=== PATIENT | male | born 1935 | race Caucasian/White ===

== ENCOUNTER 2019-12-12 17:01 | Inpatient (IN) | payer MEDICARE ==
--- NOTE | 2019-12-12 18:11 | ERPHSYRPT ---
- History of Present Illness Source: patient Exam Limitations: no limitations Patient Subjective Stated Complaint: Pt states "I have a stiff neck and a cough for the past 5 days, I had a headache, but that went away. this stiffness and cough will not." Triage Nursing Assessment: Pt presented alert and oriented X 3, skin pwd Pt ambulates with a slow gait using a cane, able to speak in clear full sentences. Pt has intermittant cough. Timing/Duration: day(s) (5) Activities at Onset: none Severity of Dyspnea-Max: mild Severity of Dyspnea-Current: mild Possible Cause: no prior episodes Modifying Factors: Improves With: coughing Associated Symptoms: cough Hx Tetanus, Diphtheria Vaccination/Date Given: No Hx Influenza Vaccination/Date Given: No Hx Pneumococcal Vaccination/Date Given: No Immunizations Up to Date: Yes <MARISSA SPRINGER - Last Filed: 12/12/19 19:09> <ANA PAULA TURNER - Last Filed: 12/12/19 21:19> - History of Present Illness Time Seen by Provider: 12/12/19 17:55 Physician History: Is an 84-year-old white gentleman who presents to the emergency department with a 5-day history of cough, muscle aches and pains including shoulders and neck and weakness as well as a significant headache. Patient has not had a fever. He does not have significant shortness of breath. He has no chest pain. Patient does take Entresto and Eliquis because of "thick blood" and he is on metoprolol. Patient does take several homeopathic preparations for his health. Patient has not had any nausea vomiting or diarrhea. He has no abdominal pain. States the cough is been persistent but improved. His headache is nearly resolved. He does have some mild aches and pains still in his neck and shoulders but they have improved. (MARISSA SPRINGER) Allergies/Adverse Reactions: No Known Drug Allergies Allergy (Unverified 12/12/19 17:33) Home Medications: Apixaban [Eliquis] 2.5 mg PO DAILY 12/12/19 [History] Metoprolol Tartrate 25 mg [Lopressor 25MG Tab] 25 mg PO DAILY 12/12/19 [ History] Sacubitril/Valsartan [Entresto 24 mg-26 mg Tablet] 1 tab PO DAILY 12/12/19 [ History] Travel Risk - International Travel Have you traveled outside of the country in past 3 weeks: No Have you or anyone close to you been diagnosed with or: No Do your reside in a community with a known COVID-19 case?: Yes If Yes where:: [place] - Coronavirus Screening Has patient experienced Coronavirus symptoms: Yes Symptoms experienced: respiratory symptoms (i.e.Cought,shortness of breath), severe headache Date of fever onset:: 12/07/19 Date of respiratory symptoms onset:: 12/07/19 <MARISSA SPRINGER - Last Filed: 12/12/19 19:09> - Review of Systems Constitutional: No Symptoms Eyes: No Symptoms Ears, Nose, & Throat: No Symptoms Respiratory: Cough (Mild), Dyspnea (Mild) Cardiac: No Symptoms Abdominal/Gastrointestinal: No Symptoms Genitourinary Symptoms: No Symptoms Musculoskeletal: Arthralgias, Neck Pain, Myalgias Skin: No Symptoms Neurological: No Symptoms Psychological: No Symptoms Endocrine: No Symptoms Hematologic/Lymphatic: No Symptoms Immunological/Allergic: No Symptoms All Other Systems: Reviewed and Negative <MRAISSA SPRINGER - Last Filed: 12/12/19 19:09> - Past Medical History Pertinent Past Medical History: Yes Neurological History: No Pertinent History ENT History: No Pertinent History Cardiac History: No Pertinent History Respiratory History: No Pertinent History Endocrine Medical History: No Pertinent History Musculoskeletal History: Arthritis GI Medical History: No Pertinent History History: No Pertinent History Psycho-Social History: No Pertinent History Male Reproductive Disorders: No Pertinent History - Past Surgical History Past Surgical History: Yes Neuro Surgical History: No Pertinent History Cardiac: No Pertinent History Respiratory: No Pertinent History Gastrointestinal: No Pertinent History Genitourinary: No Pertinent History Musculoskeletal: No Pertinent History Male Surgical History: No Pertinent History Other Surgical History: scrotal - Social History Smoking Status: Former smoker Exposure to second hand smoke: Yes Drug Use: none Patient Lives Alone: Yes <MARISSA SPRINGER - Last Filed: 12/12/19 19:09> - Physical Exam General Appearance: mild distress, alert, anxiety Eye Exam: PERRL/EOMI, eyes nml inspection Ears, Nose, Throat Exam: hearing grossly normal, normal ENT inspection, normal pharynx Neck Exam: normal inspection, supple, full range of motion, other (Mild achiness on bilateral paraspinous muscles down to the trapezius muscles. 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, normal mood/affect, nml cerebellar function, nml station & gait Skin Exam: normal color, warm, dry, other (Patient has chronic venous stasis disease skin changes of his bilateral lower extremities) Lymphatic Exam: No adenopathy SpO2 Interpretation: normal SpO2: 99 O2 Delivery: Room Air <MARISSA SPRINGER - Last Filed: 12/12/19 19:09> - Nursing Vital Signs Nursing Vital Signs: Initial Vital Signs Temperature 99.5 F 12/12/19 17:25 Pulse Rate 92 H 12/12/19 17:25 Respiratory Rate 22 12/12/19 17:25 Blood Pressure 94/89 12/12/19 17:25 O2 Sat by Pulse Oximetry 99 12/12/19 17:25 Pain Scale Pain Intensity 0 - Course Nursing assessment & vital signs reviewed: Yes EKG Interpreted by Me: RATE (86), A-fib (Rate controlled), NORMAL AXIS, Right Bundle Branch Block, Other (QRS significantly prolonged. No obvious acute ischemic changes.) <MARISSA SPRINGER - Last Filed: 12/12/19 19:09> Ordered Tests: Active Orders 24 hr Category Date Time Status Admit as Inpatient ROUTINE Care 12/12/19 20:48 Active CO2 Monitoring CONTINUOUS Care 12/12/19 20:50 Active Nurses Assistant STAT Care 12/12/19 18:20 Active EKG-ER Only STAT Care 12/12/19 18:19 Active [facility] COVID Approval STAT Care 12/12/19 20:53 Active IV Care Q6H Care 12/12/19 20:49 Active IV Insertion STAT Care 12/12/19 18:20 Active Isolation, Initiate & Maintain Q6H Care 12/12/19 20:48 Active Pulse Oximetry (ED) STAT Care 12/12/19 18:19 Active Vital Signs Q4H Care 12/12/19 20:48 Active Regular Diet Diet 12/12/19 Breakfast Active CHEST 1 VIEW (PORTABLE) Stat Exams 12/12/19 18:19 Taken ECHO W/2D AND DOPPLER [US] Routine Exams 12/12/19 Ordered BLOOD CULTURE Stat Lab 12/12/19 19:10 Received CBC Routine Lab 12/12/19 20:48 Ordered CBC W DIFF Stat Lab 12/12/19 18:00 Completed CMP AM.LAB Lab 12/13/19 04:00 Ordered CMP Stat Lab 12/12/19 18:00 Completed Ferritin Stat Lab 12/12/19 18:00 Completed LDH-LACTATE DEHYDROGENASE Stat Lab 12/12/19 18:00 Completed Lactic Acid Stat Lab 12/12/19 18:00 Completed [place] Screen Stat Lab 12/12/19 18:00 Completed NT PRO BNP AM.LAB Lab 12/13/19 04:00 Ordered NT PRO BNP Stat Lab 12/12/19 18:00 Completed PROTIME WITH INR Stat Lab 12/12/19 18:00 Completed TROPONIN Q3H Lab 12/12/19 18:00 Completed TROPONIN Q3H Lab 12/12/19 21:30 Ordered TROPONIN Q3H Lab 12/13/19 00:30 Ordered TROPONIN Q3H Lab 12/13/19 03:30 Ordered TROPONIN Q3H Lab 12/13/19 06:30 Ordered EKG REPEAT IN AM RT 12/12/19 20:48 Active Respiratory Therapy Consult ROUTINE RT 12/12/19 20:48 Active Medication Summary Generic Name Dose Route Start Last Admin Trade Name Freq PRN Reason Stop Dose Admin Azithromycin 500 mg in 250 mls @ 250 mls/hr 12/12/19 20:43 Zithromax 500 Mg/ 250 Ml Nacl Premix IV 12/12/19 21:42 STAT ONE Discontinued Medications Generic Name Dose Route Start Last Admin Trade Name Freq PRN Reason Stop Dose Admin Ceftriaxone Sodium/Dextrose 1 g in 50 mls @ 100 mls/hr 12/12/19 20:43 Rocephin 1 Gm-D5w 50 Ml Bag IV 12/12/19 21:12 STAT STA Lab/Rad Data: Laboratory Result Diagrams 12/12/19 18:00 12/12/19 18:00 Laboratory Results 12/12/19 12/12/19 12/12/19 Range/Units Unknown 18:00 18:00 WBC (4.0-10.5) K/mm3 RBC (4.1-5.6) M/mm3 Hgb (12.5-18.0) gm/dl Hct (42-50) % MCV (78-100) fl MCH (26-32) pg MCHC (32-36) g/dl RDW (11.5-14.0) % Plt Count (150-450) K/mm3 MPV (7.5-11.0) fl Gran % (36.0-66.0) % Eos # (Auto) (0-0.5) Absolute Lymphs (auto) (1.0-4.6) Absolute Monos (auto) (0.0-1.3) Lymphocytes % (24.0-44.0) % Monocytes % (0.0-12.0) % Eosinophils % (0.00-5.0) % Basophils % (0.0-0.4) % Absolute Granulocytes (1.4-6.9) Basophils # (0-0.4) PT (8.83-12.87) SECONDS INR (0.8-3.0) Sodium (137-145) mmol/L Potassium (3.5-5.1) mmol/L Chloride (98-107) mmol/L Carbon Dioxide (22-30) mmol/L Anion Gap (5-15) MEQ/L BUN (9-20) mg/dL Creatinine (0.66-1.25) mg/dL Estimated GFR ML/MIN Glucose (74-106) mg/dL Lactic Acid (0.4-2.0) Calcium (8.4-10.2) mg/dL Ferritin 224 (17.9-464) ng/mL Total Bilirubin (0.2-1.3) mg/dL AST (17-59) U/L ALT (0-50) U/L Alkaline Phosphatase (38-126) U/L Lactate Dehydrogenase (120-246) U/L Troponin I (0.000-0.034) ng/mL NT-Pro-B Natriuret Pep (0-1800) pg/mL Serum Total Protein (6.3-8.2) g/dL Albumin (3.5-5.0) g/dL Monoscreen NEGATIVE (Negative) Influenza Type A Ag (NEGATIVE) Influenza Type B Ag (NEGATIVE) RSV (PCR) (Negative) Group A Strep Antibody NOT DETECTED (NEGATIVE) 12/12/19 12/12/19 12/12/19 Range/Units 18:00 18:00 18:00 WBC (4.0-10.5) K/mm3 RBC (4.1-5.6) M/mm3 Hgb (12.5-18.0) gm/dl Hct (42-50) % MCV (78-100) fl MCH (26-32) pg MCHC (32-36) g/dl RDW (11.5-14.0) % Plt Count (150-450) K/mm3 MPV (7.5-11.0) fl Gran % (36.0-66.0) % Eos # (Auto) (0-0.5) Absolute Lymphs (auto) (1.0-4.6) Absolute Monos (auto) (0.0-1.3) Lymphocytes % (24.0-44.0) % Monocytes % (0.0-12.0) % Eosinophils % (0.00-5.0) % Basophils % (0.0-0.4) % Absolute Granulocytes (1.4-6.9) Basophils # (0-0.4) PT (8.83-12.87) SECONDS INR (0.8-3.0) Sodium (137-145) mmol/L Potassium (3.5-5.1) mmol/L Chloride (98-107) mmol/L Carbon Dioxide (22-30) mmol/L Anion Gap (5-15) MEQ/L BUN (9-20) mg/dL Creatinine (0.66-1.25) mg/dL Estimated GFR ML/MIN Glucose (74-106) mg/dL Lactic Acid (0.4-2.0) Calcium (8.4-10.2) mg/dL Ferritin (17.9-464) ng/mL Total Bilirubin (0.2-1.3) mg/dL AST (17-59) U/L ALT (0-50) U/L Alkaline Phosphatase (38-126) U/L Lactate Dehydrogenase 125 (120-246) U/L Troponin I < 0.012 (0.000-0.034) ng/mL NT-Pro-B Natriuret Pep (0-1800) pg/mL Serum Total Protein (6.3-8.2) g/dL Albumin (3.5-5.0) g/dL Monoscreen (Negative) Influenza Type A Ag NEGATIVE (NEGATIVE) Influenza Type B Ag NEGATIVE (NEGATIVE) RSV (PCR) NEGATIVE (Negative) Group A Strep Antibody (NEGATIVE) 12/12/19 12/12/19 12/12/19 Range/Units 18:00 18:00 18:00 WBC 8.3 (4.0-10.5) K/mm3 RBC 3.86 L (4.1-5.6) M/mm3 Hgb 13.2 (12.5-18.0) gm/dl Hct 38.6 L (42-50) % MCV 100.0 (78-100) fl MCH 34.2 H (26-32) pg MCHC 34.2 (32-36) g/dl RDW 13.1 (11.5-14.0) % Plt Count 261 (150-450) K/mm3 MPV 10.2 (7.5-11.0) fl Gran % 48.0 (36.0-66.0) % Eos # (Auto) 0.36 (0-0.5) Absolute Lymphs (auto) 3.00 (1.0-4.6) Absolute Monos (auto) 0.92 (0.0-1.3) Lymphocytes % 36.1 (24.0-44.0) % Monocytes % 11.1 (0.0-12.0) % Eosinophils % 4.3 (0.00-5.0) % Basophils % 0.5 (0.0-0.4) % Absolute Granulocytes 3.98 (1.4-6.9) Basophils # 0.04 (0-0.4) PT 16.6 H (8.83-12.87) SECONDS INR 1.46 (0.8-3.0) Sodium 142 (137-145) mmol/L Potassium 4.1 (3.5-5.1) mmol/L Chloride 104 (98-107) mmol/L Carbon Dioxide 28 (22-30) mmol/L Anion Gap 13.2 (5-15) MEQ/L BUN 24 H (9-20) mg/dL Creatinine 1.14 (0.66-1.25) mg/dL Estimated GFR > 60.0 ML/MIN Glucose 106 (74-106) mg/dL Lactic Acid (0.4-2.0) Calcium 9.3 (8.4-10.2) mg/dL Ferritin (17.9-464) ng/mL Total Bilirubin 0.70 (0.2-1.3) mg/dL AST 40 (17-59) U/L ALT 14 (0-50) U/L Alkaline Phosphatase 94 (38-126) U/L Lactate Dehydrogenase (120-246) U/L Troponin I (0.000-0.034) ng/mL NT-Pro-B Natriuret Pep 728 (0-1800) pg/mL Serum Total Protein 7.9 (6.3-8.2) g/dL Albumin 3.8 (3.5-5.0) g/dL Monoscreen (Negative) Influenza Type A Ag (NEGATIVE) Influenza Type B Ag (NEGATIVE) RSV (PCR) (Negative) Group A Strep Antibody (NEGATIVE) 12/12/19 Range/Units 18:00 WBC (4.0-10.5) K/mm3 RBC (4.1-5.6) M/mm3 Hgb (12.5-18.0) gm/dl Hct (42-50) % MCV (78-100) fl MCH (26-32) pg MCHC (32-36) g/dl RDW (11.5-14.0) % Plt Count (150-450) K/mm3 MPV (7.5-11.0) fl Gran % (36.0-66.0) % Eos # (Auto) (0-0.5) Absolute Lymphs (auto) (1.0-4.6) Absolute Monos (auto) (0.0-1.3) Lymphocytes % (24.0-44.0) % Monocytes % (0.0-12.0) % Eosinophils % (0.00-5.0) % Basophils % (0.0-0.4) % Absolute Granulocytes (1.4-6.9) Basophils # (0-0.4) PT (8.83-12.87) SECONDS INR (0.8-3.0) Sodium (137-145) mmol/L Potassium (3.5-5.1) mmol/L Chloride (98-107) mmol/L Carbon Dioxide (22-30) mmol/L Anion Gap (5-15) MEQ/L BUN (9-20) mg/dL Creatinine (0.66-1.25) mg/dL Estimated GFR ML/MIN Glucose (74-106) mg/dL Lactic Acid 1.4 (0.4-2.0) Calcium (8.4-10.2) mg/dL Ferritin (17.9-464) ng/mL Total Bilirubin (0.2-1.3) mg/dL AST (17-59) U/L ALT (0-50) U/L Alkaline Phosphatase (38-126) U/L Lactate Dehydrogenase (120-246) U/L Troponin I (0.000-0.034) ng/mL NT-Pro-B Natriuret Pep (0-1800) pg/mL Serum Total Protein (6.3-8.2) g/dL Albumin (3.5-5.0) g/dL Monoscreen (Negative) Influenza Type A Ag (NEGATIVE) Influenza Type B Ag (NEGATIVE) RSV (PCR) (Negative) Group A Strep Antibody (NEGATIVE) <MARISSA SPRINGER - Last Filed: 12/12/19 19:09> - Progress Blood Culture(s) Obtained: Yes Antibiotics given: Yes Discussed with : Anuj Will see patient in: hospital (full admit) Counseled pt/family regarding: lab results, diagnosis, rad results <ANA PAULA TURNER - Last Filed: 12/12/19 21:19> - Progress Progress Note: 12/12/19 19:09 I reviewed the patient's history, condition and work-up pending with Dr. Ana Paula Turner. He is assuming care of this patient. (MARISSA SPRINGER) 12/12/19 21:19 Patient has a right lower lobe pneumonia versus effusion. He would benefit from an inpatient echocardiogram, continued cardiac monitoring, repeat EKGs and troponin. Patient may also have pneumonia, therefore we will treat with ceftriaxone and azithromycin. Initial antibiotics written for here in the emergency department. Patient will need close follow-up with inpatient physician. I did discuss over the phone with Dr. Lindsey and Dr. aMrtinez. Eventually, Dr. Martinez did accept the patient to the COVID-19 unit here at [facility]. All COVID precautions will be taken per protocols. (ANA PAULA TURNER) <MARISSA SPRINGER - Last Filed: 12/12/19 19:09> - Departure Departure Disposition: In-patient Admission Critical Care Time: No <ANA PAULA TURNER - Last Filed: 12/12/19 21:19> - Departure Clinical Impression: COVID-19, CHF exacerbation, PNA (pneumonia) Condition: Stable Referrals: RADHA GUTIÉRREZ [Primary Care Provider] - Instructions: Heart Failure
[2019-12-12 18:35] LABS: Absolute Neutrophil Ct (ANC) 3.98 (1.4-6.9); BASOPHIL % 0.5 % (0.0-0.4); Basophil (Absolute #) 0.04 (0-0.4); Eosinophil % 4.3 % (0.00-5.0); Eosinophil (Absolute #) 0.36 (0-0.5); Hematocrit 38.6 % (42-50); Hemoglobin 13.2 gm/dl (12.5-18.0); Lymphocytes % 36.1 % (24.0-44.0); Mean Corpuscular Hemoglobin 34.2 pg (26-32); Mean Corpuscular Hgb Concent. 34.2 g/dl (32-36); Mean Platelet Volume 10.2 fl (7.5-11.0); Monocyte (Absolute #) 0.92 (0.0-1.3); Monocytes % 11.1 % (0.0-12.0); Platelet Count 261 K/mm3 (150-450); Red Blood Count 3.86 M/mm3 (4.1-5.6); Red Cell Distribution Width 13.1 % (11.5-14.0); White Blood Count 8.3 K/mm3 (4.0-10.5)
[2019-12-12 18:49] LABS: INR 1.46 (0.8-3.0); PROTIME 16.6 SECONDS (8.83-12.87)
[2019-12-12 18:59] LABS: INFLUENZA A NEGATIVE (NEGATIVE); INFLUENZA B NEGATIVE (NEGATIVE); RESPIRATORY SYNCTIAL VIRUS NEGATIVE (Negative)
[2019-12-12 19:07] LABS: ALBUMIN 3.8 g/dL (3.5-5.0); ALKALINE PHOSPHATASE 94 U/L (38-126); ANION GAP 13.2 MEQ/L (5-15); BLOOD UREA NITROGEN 24 mg/dL (9-20); CHLORIDE 104 mmol/L (98-107); Calcium 9.3 mg/dL (8.4-10.2); Carbon Dioxide 28 mmol/L (22-30); Creatinine 1 1.14 mg/dL (0.66-1.25); Glucose 106 mg/dL (74-106); NT PRO BNP 728 pg/mL (0-1800); Potassium 4.1 mmol/L (3.5-5.1); SGOT/AST 40 U/L (17-59); SGPT/ALT 14 U/L (0-50); SODIUM 142 mmol/L (137-145); Total Protein 7.9 g/dL (6.3-8.2)
[2019-12-12] MEDS ORDERED: Zithromax 500 MG/ 250 ML NaCl Premix 500 MG/250 ML IVPB IV ONE ×2 (20:43→22:54)
[2019-12-12] MEDS ORDERED: ROCEPHIN 1 Gm-D5w 50 ml Bag** 1 G/50 ML IVPB IV STA (20:43)
[2019-12-12] MEDS ORDERED: ROCEPHIN 1 Gm-D5w 50 ml Bag** 1 G/50 ML IVPB IV ONE (22:54)
[2019-12-13 04:04] LABS: Hematocrit 36.8 % (42-50); Hemoglobin 12.2 gm/dl (12.5-18.0); Mean Cell Volume 101.7 fl (78-100); Mean Corpuscular Hemoglobin 33.7 pg (26-32); Mean Corpuscular Hgb Concent. 33.2 g/dl (32-36); Mean Platelet Volume 10.2 fl (7.5-11.0); Platelet Count 246 K/mm3 (150-450); Red Blood Count 3.62 M/mm3 (4.1-5.6); Red Cell Distribution Width 13.3 % (11.5-14.0); White Blood Count 7.8 K/mm3 (4.0-10.5)
[2019-12-13 04:10] LABS: ALBUMIN 3.3 g/dL (3.5-5.0); ALKALINE PHOSPHATASE 82 U/L (38-126); BLOOD UREA NITROGEN 22 mg/dL (9-20); CHLORIDE 106 mmol/L (98-107); Carbon Dioxide 29 mmol/L (22-30); Creatinine 1 1.03 mg/dL (0.66-1.25); Glucose 92 mg/dL (74-106); NT PRO BNP 788 pg/mL (0-1800); Potassium 4.1 mmol/L (3.5-5.1); SGOT/AST 21 U/L (17-59); SGPT/ALT 12 U/L (0-50); SODIUM 139 mmol/L (137-145); Total Protein 7.2 g/dL (6.3-8.2)
--- NOTE | 2019-12-13 08:51 | XRAY ---
Indication: Cough. Comparison: None Portable chest demonstrates cardiomegaly obscuring left lung base. Subtle right base infiltrate versus atelectasis. Descending aorta tortuous. Bony thorax intact with osteopenia and mild degenerative changes. Impression: 1. Right base infiltrate/atelectasis. Correlate clinically. 2. Cardiomegaly.
[2019-12-13 10:50] LABS: Appearance CLEAR (CLEAR); Bilirubin NEGATIVE (NEGATIVE); Blood NEGATIVE Ery/ul (0-5); Glucose NEGATIVE (NEGATIVE); Ketones NEGATIVE (NEGATIVE); Leukocyte Esterase NEGATIVE (NEGATIVE); Mucus SLIGHT /HPF (NEGATIVE); Nitrite NEGATIVE (NEGATIVE); Protein,Urine Dip NEGATIVE (Negative); Specific Gravity 1.017 (1.005-1.025); Urobilinogen NEGATIVE mg/dL (0-1)
[2019-12-13] MEDS: SYNTHROID 25 MCG PO SCH (11:38)
[2019-12-13] MEDS: ELIQUIS 2.5 MG TABLET PO SCH ×2 (11:39→20:53)
[2019-12-13] MEDS: ENTRESTO 49 MG-51 MG TABLET PO SCH ×2 (11:39→20:52)
[2019-12-13] MEDS: Lopressor 25MG Tab PO SCH ×2 (11:39→20:53)
--- NOTE | 2019-12-13 11:41 | PCM.HP ---
History of Present Illness - Chief Complaint Chief Complaint: Pneumonia, COVID 19, CHF History of Present Illness: Mr.LOCKARD COOPER is a 84 year old male who presented to the ER yesterday with a complaint of cough, headache and stiff neck x 5 days. he had some chills and felt weak as well, cough has been nonproductive. he is actually feeling some better today, stiffness in his neck is improved. he lives with 2 grandsons and is independent. Dr Janet Mathias is his PCP, he contacted her office yesterday and was apparently directed to the ER for evaluation due to his complaints. he also has a history of a fib and chf. - Review of Systems Constitutional: No Fever, No Chills Respiratory: Cough Cardiac: No Chest Pain, No Edema, No Syncope Skin: No Rash All Other Systems: Reviewed and Negative Medications & Allergies Home Medications: Home Medication List Apixaban [Eliquis] 2.5 mg PO BID 12/12/19 [History Confirmed 12/13/19] Metoprolol Tartrate 25 mg [Lopressor 25MG Tab] 25 mg PO BID 12/12/19 [ History Confirmed 12/13/19] Sacubitril/Valsartan [Entresto 24 mg-26 mg Tablet] 1 tab PO BID 12/12/19 [ History Confirmed 12/13/19] Levothyroxine Sodium 25 Mcg [Synthroid 25 Mcg] 25 mcg PO DAILY 12/13/19 [ History Confirmed 12/13/19] Allergies/Adverse Reactions: Allergies Allergy/AdvReac Type Severity Reaction Status Date / Time No Known Drug Allergies Allergy Unverified 12/12/19 17:33 - Past Medical History Past Medical History: Yes Neurological History: No Pertinent History ENT History: No Pertinent History Cardiac History: No Pertinent History Respiratory History: No Pertinent History Endocrine Medical History: No Pertinent History Musculoskelatal History: Arthritis GI Medical History: No Pertinent History History: No Pertinent History Pyscho-Social History: No Pertinent History Male Reproductive Disorders: No Pertinent History - Past Surgical History Past Surgical History: Yes Neuro Surgical History: No Pertinent History Cardiac History: No Pertinent History Respiratory Surgery: No Pertinent History GI Surgical History: No Pertinent History Genitourinary Surgical Hx: No Pertinent History Musculskeletal Surgical Hx: No Pertinent History Male Surgical History: No Pertinent History Other Surgical History: scrotal - Social History Smoking Status: Former smoker Exposure to second hand smoke: Yes Alcohol: None Drug Use: none - Physical Exam Vital Signs: Vital Signs - 24 hr Temp Pulse Resp BP Pulse Ox 12/13/19 11:00 10 L 12/13/19 10:00 83 21 95 12/13/19 09:00 16 12/13/19 08:00 99.0 F 65 19 135/64 12/13/19 07:00 17 12/13/19 05:58 69 18 93 L 12/13/19 05:15 70 18 95 12/13/19 05:00 18 12/13/19 04:00 97.7 F 71 18 111/65 95 12/13/19 03:40 17 12/13/19 02:00 68 17 95 12/13/19 01:00 18 12/13/19 00:18 86 18 94 L 12/13/19 00:00 84 18 12/12/19 23:50 98.4 F 86 18 118/70 94 L 12/12/19 23:00 73 17 128/84 94 L 12/12/19 22:30 74 18 115/63 94 L 12/12/19 22:00 70 18 129/83 95 12/12/19 21:04 77 18 131/56 97 12/12/19 20:23 76 18 127/67 97 12/12/19 19:27 74 15 133/86 98 12/12/19 19:10 99 12/12/19 18:33 98 12/12/19 18:17 84 17 144/93 97 12/12/19 17:25 99.5 F 92 H 22 94/89 98 General Appearance: no apparent distress Neurologic Exam: alert, oriented x 3, cooperative Respiratory Exam: rhonchi (no distress, slight rhonci in bases but overall good air exchange. no increased work of breathing) Cardiovascular Exam: irregular Extremity Exam: normal inspection, normal range of motion, pelvis stable Skin Exam: normal color, warm, dry, No rash Results - Labs Lab/Micro Results: Lab Results-Last 24 Hours 12/12/19 12/12/19 12/12/19 Range/Units 18:00 18:00 18:00 WBC 8.3 (4.0-10.5) K/mm3 RBC 3.86 L (4.1-5.6) M/mm3 Hgb 13.2 (12.5-18.0) gm/dl Hct 38.6 L (42-50) % MCV 100.0 (78-100) fl MCH 34.2 H (26-32) pg MCHC 34.2 (32-36) g/dl RDW 13.1 (11.5-14.0) % Plt Count 261 (150-450) K/mm3 MPV 10.2 (7.5-11.0) fl Gran % 48.0 (36.0-66.0) % Eos # (Auto) 0.36 (0-0.5) Absolute Lymphs (auto) 3.00 (1.0-4.6) Absolute Monos (auto) 0.92 (0.0-1.3) Lymphocytes % 36.1 (24.0-44.0) % Monocytes % 11.1 (0.0-12.0) % Eosinophils % 4.3 (0.00-5.0) % Basophils % 0.5 (0.0-0.4) % Absolute Granulocytes 3.98 (1.4-6.9) Basophils # 0.04 (0-0.4) PT (8.83-12.87) SECONDS INR (0.8-3.0) Sodium 142 (137-145) mmol/L Potassium 4.1 (3.5-5.1) mmol/L Chloride 104 (98-107) mmol/L Carbon Dioxide 28 (22-30) mmol/L Anion Gap 13.2 (5-15) MEQ/L BUN 24 H (9-20) mg/dL Creatinine 1.14 (0.66-1.25) mg/dL Estimated GFR > 60.0 ML/MIN Glucose 106 (74-106) mg/dL Lactic Acid 1.4 (0.4-2.0) Calcium 9.3 (8.4-10.2) mg/dL Ferritin (17.9-464) ng/mL Total Bilirubin 0.70 (0.2-1.3) mg/dL AST 40 (17-59) U/L ALT 14 (0-50) U/L Alkaline Phosphatase 94 (38-126) U/L Lactate Dehydrogenase (120-246) U/L Troponin I (0.000-0.034) ng/mL NT-Pro-B Natriuret Pep 728 (0-1800) pg/mL Serum Total Protein 7.9 (6.3-8.2) g/dL Albumin 3.8 (3.5-5.0) g/dL Monoscreen (Negative) Influenza Type A Ag (NEGATIVE) Influenza Type B Ag (NEGATIVE) RSV (PCR) (Negative) Group A Strep Antibody (NEGATIVE) 12/12/19 12/12/19 12/12/19 Range/Units 18:00 18:00 18:00 WBC (4.0-10.5) K/mm3 RBC (4.1-5.6) M/mm3 Hgb (12.5-18.0) gm/dl Hct (42-50) % MCV (78-100) fl MCH (26-32) pg MCHC (32-36) g/dl RDW (11.5-14.0) % Plt Count (150-450) K/mm3 MPV (7.5-11.0) fl Gran % (36.0-66.0) % Eos # (Auto) (0-0.5) Absolute Lymphs (auto) (1.0-4.6) Absolute Monos (auto) (0.0-1.3) Lymphocytes % (24.0-44.0) % Monocytes % (0.0-12.0) % Eosinophils % (0.00-5.0) % Basophils % (0.0-0.4) % Absolute Granulocytes (1.4-6.9) Basophils # (0-0.4) PT 16.6 H (8.83-12.87) SECONDS INR 1.46 (0.8-3.0) Sodium (137-145) mmol/L Potassium (3.5-5.1) mmol/L Chloride (98-107) mmol/L Carbon Dioxide (22-30) mmol/L Anion Gap (5-15) MEQ/L BUN (9-20) mg/dL Creatinine (0.66-1.25) mg/dL Estimated GFR ML/MIN Glucose (74-106) mg/dL Lactic Acid (0.4-2.0) Calcium (8.4-10.2) mg/dL Ferritin (17.9-464) ng/mL Total Bilirubin (0.2-1.3) mg/dL AST (17-59) U/L ALT (0-50) U/L Alkaline Phosphatase (38-126) U/L Lactate Dehydrogenase (120-246) U/L Troponin I < 0.012 (0.000-0.034) ng/mL NT-Pro-B Natriuret Pep (0-1800) pg/mL Serum Total Protein (6.3-8.2) g/dL Albumin (3.5-5.0) g/dL Monoscreen (Negative) Influenza Type A Ag NEGATIVE (NEGATIVE) Influenza Type B Ag NEGATIVE (NEGATIVE) RSV (PCR) NEGATIVE (Negative) Group A Strep Antibody (NEGATIVE) 12/12/19 12/12/19 12/12/19 Range/Units 18:00 18:00 18:00 WBC (4.0-10.5) K/mm3 RBC (4.1-5.6) M/mm3 Hgb (12.5-18.0) gm/dl Hct (42-50) % MCV (78-100) fl MCH (26-32) pg MCHC (32-36) g/dl RDW (11.5-14.0) % Plt Count (150-450) K/mm3 MPV (7.5-11.0) fl Gran % (36.0-66.0) % Eos # (Auto) (0-0.5) Absolute Lymphs (auto) (1.0-4.6) Absolute Monos (auto) (0.0-1.3) Lymphocytes % (24.0-44.0) % Monocytes % (0.0-12.0) % Eosinophils % (0.00-5.0) % Basophils % (0.0-0.4) % Absolute Granulocytes (1.4-6.9) Basophils # (0-0.4) PT (8.83-12.87) SECONDS INR (0.8-3.0) Sodium (137-145) mmol/L Potassium (3.5-5.1) mmol/L Chloride (98-107) mmol/L Carbon Dioxide (22-30) mmol/L Anion Gap (5-15) MEQ/L BUN (9-20) mg/dL Creatinine (0.66-1.25) mg/dL Estimated GFR ML/MIN Glucose (74-106) mg/dL Lactic Acid (0.4-2.0) Calcium (8.4-10.2) mg/dL Ferritin 224 (17.9-464) ng/mL Total Bilirubin (0.2-1.3) mg/dL AST (17-59) U/L ALT (0-50) U/L Alkaline Phosphatase (38-126) U/L Lactate Dehydrogenase 125 (120-246) U/L Troponin I (0.000-0.034) ng/mL NT-Pro-B Natriuret Pep (0-1800) pg/mL Serum Total Protein (6.3-8.2) g/dL Albumin (3.5-5.0) g/dL Monoscreen NEGATIVE (Negative) Influenza Type A Ag (NEGATIVE) Influenza Type B Ag (NEGATIVE) RSV (PCR) (Negative) Group A Strep Antibody (NEGATIVE) 12/12/19 12/12/19 12/13/19 Range/Units 21:35 Unknown 00:45 WBC (4.0-10.5) K/mm3 RBC (4.1-5.6) M/mm3 Hgb (12.5-18.0) gm/dl Hct (42-50) % MCV (78-100) fl MCH (26-32) pg MCHC (32-36) g/dl RDW (11.5-14.0) % Plt Count (150-450) K/mm3 MPV (7.5-11.0) fl Gran % (36.0-66.0) % Eos # (Auto) (0-0.5) Absolute Lymphs (auto) (1.0-4.6) Absolute Monos (auto) (0.0-1.3) Lymphocytes % (24.0-44.0) % Monocytes % (0.0-12.0) % Eosinophils % (0.00-5.0) % Basophils % (0.0-0.4) % Absolute Granulocytes (1.4-6.9) Basophils # (0-0.4) PT (8.83-12.87) SECONDS INR (0.8-3.0) Sodium (137-145) mmol/L Potassium (3.5-5.1) mmol/L Chloride (98-107) mmol/L Carbon Dioxide (22-30) mmol/L Anion Gap (5-15) MEQ/L BUN (9-20) mg/dL Creatinine (0.66-1.25) mg/dL Estimated GFR ML/MIN Glucose (74-106) mg/dL Lactic Acid (0.4-2.0) Calcium (8.4-10.2) mg/dL Ferritin (17.9-464) ng/mL Total Bilirubin (0.2-1.3) mg/dL AST (17-59) U/L ALT (0-50) U/L Alkaline Phosphatase (38-126) U/L Lactate Dehydrogenase (120-246) U/L Troponin I < 0.012 < 0.012 (0.000-0.034) ng/mL NT-Pro-B Natriuret Pep (0-1800) pg/mL Serum Total Protein (6.3-8.2) g/dL Albumin (3.5-5.0) g/dL Monoscreen (Negative) Influenza Type A Ag (NEGATIVE) Influenza Type B Ag (NEGATIVE) RSV (PCR) (Negative) Group A Strep Antibody NOT DETECTED (NEGATIVE) 12/13/19 12/13/19 12/13/19 Range/Units 03:40 03:40 03:40 WBC 7.8 (4.0-10.5) K/mm3 RBC 3.62 L (4.1-5.6) M/mm3 Hgb 12.2 L (12.5-18.0) gm/dl Hct 36.8 L (42-50) % MCV 101.7 H (78-100) fl MCH 33.7 H (26-32) pg MCHC 33.2 (32-36) g/dl RDW 13.3 (11.5-14.0) % Plt Count 246 (150-450) K/mm3 MPV 10.2 (7.5-11.0) fl Gran % (36.0-66.0) % Eos # (Auto) (0-0.5) Absolute Lymphs (auto) (1.0-4.6) Absolute Monos (auto) (0.0-1.3) Lymphocytes % (24.0-44.0) % Monocytes % (0.0-12.0) % Eosinophils % (0.00-5.0) % Basophils % (0.0-0.4) % Absolute Granulocytes (1.4-6.9) Basophils # (0-0.4) PT (8.83-12.87) SECONDS INR (0.8-3.0) Sodium 139 (137-145) mmol/L Potassium 4.1 (3.5-5.1) mmol/L Chloride 106 (98-107) mmol/L Carbon Dioxide 29 (22-30) mmol/L Anion Gap 9.0 (5-15) MEQ/L BUN 22 H (9-20) mg/dL Creatinine 1.03 (0.66-1.25) mg/dL Estimated GFR > 60.0 ML/MIN Glucose 92 (74-106) mg/dL Lactic Acid (0.4-2.0) Calcium 9.0 (8.4-10.2) mg/dL Ferritin (17.9-464) ng/mL Total Bilirubin 0.90 (0.2-1.3) mg/dL AST 21 (17-59) U/L ALT 12 (0-50) U/L Alkaline Phosphatase 82 (38-126) U/L Lactate Dehydrogenase (120-246) U/L Troponin I < 0.012 (0.000-0.034) ng/mL NT-Pro-B Natriuret Pep 788 (0-1800) pg/mL Serum Total Protein 7.2 (6.3-8.2) g/dL Albumin 3.3 L (3.5-5.0) g/dL Monoscreen (Negative) Influenza Type A Ag (NEGATIVE) Influenza Type B Ag (NEGATIVE) RSV (PCR) (Negative) Group A Strep Antibody (NEGATIVE) 12/13/19 Range/Units 07:20 WBC (4.0-10.5) K/mm3 RBC (4.1-5.6) M/mm3 Hgb (12.5-18.0) gm/dl Hct (42-50) % MCV (78-100) fl MCH (26-32) pg MCHC (32-36) g/dl RDW (11.5-14.0) % Plt Count (150-450) K/mm3 MPV (7.5-11.0) fl Gran % (36.0-66.0) % Eos # (Auto) (0-0.5) Absolute Lymphs (auto) (1.0-4.6) Absolute Monos (auto) (0.0-1.3) Lymphocytes % (24.0-44.0) % Monocytes % (0.0-12.0) % Eosinophils % (0.00-5.0) % Basophils % (0.0-0.4) % Absolute Granulocytes (1.4-6.9) Basophils # (0-0.4) PT (8.83-12.87) SECONDS INR (0.8-3.0) Sodium (137-145) mmol/L Potassium (3.5-5.1) mmol/L Chloride (98-107) mmol/L Carbon Dioxide (22-30) mmol/L Anion Gap (5-15) MEQ/L BUN (9-20) mg/dL Creatinine (0.66-1.25) mg/dL Estimated GFR ML/MIN Glucose (74-106) mg/dL Lactic Acid (0.4-2.0) Calcium (8.4-10.2) mg/dL Ferritin (17.9-464) ng/mL Total Bilirubin (0.2-1.3) mg/dL AST (17-59) U/L ALT (0-50) U/L Alkaline Phosphatase (38-126) U/L Lactate Dehydrogenase (120-246) U/L Troponin I < 0.012 (0.000-0.034) ng/mL NT-Pro-B Natriuret Pep (0-1800) pg/mL Serum Total Protein (6.3-8.2) g/dL Albumin (3.5-5.0) g/dL Monoscreen (Negative) Influenza Type A Ag (NEGATIVE) Influenza Type B Ag (NEGATIVE) RSV (PCR) (Negative) Group A Strep Antibody (NEGATIVE) - Radiology Impressions Radiology Exams & Impressions: Radiology Procedures Category Date Time Status CHEST 1 VIEW (PORTABLE) Stat Exams 12/12/19 18:19 Completed - Other Procedures and Tests Respiratory Therapy 12/13/19 00:21 Respiratory Therapy Assessment DAILY Assessment/Plan (1) Community acquired pneumonia Current Visit: Yes Status: Acute Assessment & Plan: on rocephin/zithromax, covid swab pending. nontoxic appearing and tolerating po , no fluids Code(s): J18.9 - PNEUMONIA, UNSPECIFIED ORGANISM (2) Atrial fibrillation Current Visit: Yes Status: Acute Assessment & Plan: continue eliquis Code(s): I48.91 - UNSPECIFIED ATRIAL FIBRILLATION (3) CHF (congestive heart failure) Current Visit: Yes Status: Acute Assessment & Plan: currently appears euvolemic, continue entresto. no need for diuresis currently but will monitor volume status Code(s): I50.9 - HEART FAILURE, UNSPECIFIED
[2019-12-13] MEDS: TYLENOL 325 MG PO PRN (16:30)
[2019-12-13] MEDS: ROCEPHIN 1 Gm-D5w 50 ml Bag** 1 G/50 ML IVPB IV SCH (20:52)
[2019-12-13] MEDS: Zithromax 500 MG/ 250 ML NaCl Premix 500 MG/250 ML IVPB IV SCH (21:33)
[2019-12-13] MEDS ORDERED: NON-FORMULARY ITEM (Sacubitril/Valsartan [Entresto 24 Mg-26 Mg Tablet] 1 TAB) PO SCH (22:00)
[2019-12-14 05:14] LABS: Absolute Neutrophil Ct (ANC) 3.88 (1.4-6.9); BASOPHIL % 0.2 % (0.0-0.4); Basophil (Absolute #) 0.02 (0-0.4); Eosinophil % 1.9 % (0.00-5.0); Eosinophil (Absolute #) 0.16 (0-0.5); Hematocrit 36.7 % (42-50); Hemoglobin 12.1 gm/dl (12.5-18.0); Lymphocyte (Absolute #) 2.97 (1.0-4.6); Mean Cell Volume 101.7 fl (78-100); Mean Corpuscular Hemoglobin 33.5 pg (26-32); Mean Platelet Volume 10.1 fl (7.5-11.0); Monocyte (Absolute #) 1.23 (0.0-1.3); Monocytes % 14.9 % (0.0-12.0); Platelet Count 239 K/mm3 (150-450); Red Blood Count 3.61 M/mm3 (4.1-5.6); Red Cell Distribution Width 13.3 % (11.5-14.0); White Blood Count 8.3 K/mm3 (4.0-10.5)
[2019-12-14 05:50] LABS: BLOOD UREA NITROGEN 25 mg/dL (9-20); CHLORIDE 106 mmol/L (98-107); Calcium 8.8 mg/dL (8.4-10.2); Carbon Dioxide 27 mmol/L (22-30); Creatinine 1 1.05 mg/dL (0.66-1.25); Glucose 101 mg/dL (74-106); NT PRO BNP 1210 pg/mL (0-1800); SODIUM 139 mmol/L (137-145)
[2019-12-14] MEDS: ENTRESTO 49 MG-51 MG TABLET PO SCH ×2 (09:19→21:47)
[2019-12-14] MEDS: ELIQUIS 2.5 MG TABLET PO SCH ×2 (09:19→21:47)
[2019-12-14] MEDS: SYNTHROID 25 MCG PO SCH (09:19)
[2019-12-14] MEDS: Lopressor 25MG Tab PO SCH ×2 (09:20→21:48)
--- NOTE | 2019-12-14 11:05 | PCM.NOTE ---
Date and Time: 12/14/19 1101 Subjective Assessment: patient is very weak and requires maximum assistance by staff to get to restroom etc. he has chronic weakness in the legs worse on the left and seems to be worse than usual in the last few days/weeks. no trouble with speech, no visual changes and no weakness in arms or hands. 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, No motor deficits, No sensory deficit Respiratory Exam: normal breath sounds, lungs clear, No respiratory distress Cardiovascular Exam: regular rate/rhythm, normal heart sounds Gastrointestinal/Abdomen Exam: soft, No tenderness, No mass OBJECTIVE DATA Vital Signs: Vital Signs - 24 hr Temp Pulse Resp BP Pulse Ox 12/14/19 10:00 98.3 F 76 18 94 L 12/14/19 08:41 16 12/14/19 08:00 16 12/14/19 07:13 98.3 F 81 16 130/61 96 12/14/19 07:00 16 12/14/19 06:50 93 L 12/14/19 06:00 79 24 93 L 12/14/19 05:19 85 21 92 L 12/14/19 05:00 17 12/14/19 04:00 99.2 F 88 24 105/62 97 12/14/19 03:00 22 12/14/19 02:00 84 22 92 L 12/14/19 01:00 23 12/14/19 00:52 71 23 97 12/14/19 00:00 98.8 F 65 21 108/55 95 12/13/19 23:00 18 12/13/19 22:00 73 17 94 L 12/13/19 21:00 79 23 96 12/13/19 20:00 98.4 F 103 H 19 110/63 94 L 12/13/19 19:40 101 H 18 94 L 12/13/19 19:00 19 12/13/19 18:00 91 H 24 95 12/13/19 17:00 13 12/13/19 16:34 98.7 F 12/13/19 16:00 98.6 F 80 16 131/63 12/13/19 15:00 21 12/13/19 14:00 75 15 95 12/13/19 13:59 22 12/13/19 13:00 22 12/13/19 12:55 98.3 F 12/13/19 12:00 11 L 12/13/19 11:38 100.7 F 95 H 17 144/89 96 Pain Assessment - Last Documented Pain Intensity 0 Pain Scale Used 0-10 Pain Scale Intake and Output: Intake & Output 12/11/19 12/12/19 12/13/19 12/14/19 11:59 11:59 11:59 11:59 Intake Total 200 830 Output Total 500 400 Balance -300 430 Weight 102.6 kg Lab Results: Lab Results-Last 24 Hours 12/13/19 12/14/19 12/14/19 Range/Units 05:00 04:50 04:50 WBC 8.3 (4.0-10.5) K/mm3 RBC 3.61 L (4.1-5.6) M/mm3 Hgb 12.1 L (12.5-18.0) gm/dl Hct 36.7 L (42-50) % MCV 101.7 H (78-100) fl MCH 33.5 H (26-32) pg MCHC 33.0 (32-36) g/dl RDW 13.3 (11.5-14.0) % Plt Count 239 (150-450) K/mm3 MPV 10.1 (7.5-11.0) fl Gran % 47.0 (36.0-66.0) % Eos # (Auto) 0.16 (0-0.5) Absolute Lymphs (auto) 2.97 (1.0-4.6) Absolute Monos (auto) 1.23 (0.0-1.3) Lymphocytes % 36.0 (24.0-44.0) % Monocytes % 14.9 H (0.0-12.0) % Eosinophils % 1.9 (0.00-5.0) % Basophils % 0.2 (0.0-0.4) % Absolute Granulocytes 3.88 (1.4-6.9) Basophils # 0.02 (0-0.4) Sodium 139 (137-145) mmol/L Potassium 4.0 (3.5-5.1) mmol/L Chloride 106 (98-107) mmol/L Carbon Dioxide 27 (22-30) mmol/L Anion Gap 10.0 (5-15) MEQ/L BUN 25 H (9-20) mg/dL Creatinine 1.05 (0.66-1.25) mg/dL Estimated GFR > 60.0 ML/MIN Glucose 101 (74-106) mg/dL Calcium 8.8 (8.4-10.2) mg/dL NT-Pro-B Natriuret Pep 1210 (0-1800) pg/mL Urine Color YELLOW (YELLOW) Urine Appearance CLEAR (CLEAR) Urine pH 5.0 (5-6) Ur Specific [place] 1.017 (1.005-1.025) Urine Protein NEGATIVE (Negative) Urine Ketones NEGATIVE (NEGATIVE) Urine Blood NEGATIVE (0-5) Jared/ul Urine Nitrite NEGATIVE (NEGATIVE) Urine Bilirubin NEGATIVE (NEGATIVE) Urine Urobilinogen NEGATIVE (0-1) mg/dL Ur Leukocyte Esterase NEGATIVE (NEGATIVE) Urine WBC (Auto) NONE (0-5) /HPF Urine RBC (Auto) 3-5 (0-2) /HPF U Epithel Cells (Auto) NONE (FEW) /HPF Urine Bacteria (Auto) NONE (NEGATIVE) /HPF Urine Mucus (Auto) SLIGHT (NEGATIVE) /HPF Urine Culture Reflexed NO (NO) Urine Glucose NEGATIVE (NEGATIVE) mg/dL Radiology Exams: Radiology Procedures Category Date Time Status CHEST 1 VIEW (PORTABLE) Stat Exams 12/12/19 18:19 Completed Multi-Disciplinary Progress Notes: Multi-Disciplinary Progress Notes 12/14/19 10:58 Case Management Note by Florence Tripp S/Luis PATIENT HE CONTINUES TO DENY ANY NEEDS REGARDING DC AT THIS TIME. 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 HE PLANS TO GET COVID RESULTS BACK THEN IF NEGATIVE HAVE PT ASSESS HIM AND GO FROM THERE. PATIENT RELUCTANT TO GO TO REHAB BUT SEEMS AGREEABLE IF HE NEEDS TO. HE IS AWARE WE ARE WAITING FOR COVID RESULTS AND WILL GO FROM THERE. DAUGHTER MICHAELA ALSO UPDATED ON PLAN AND VERIFIED UNDERSTANDING. Initialized on 12/14/19 10:52 - END OF NOTE Assessment/Plan (1) Community acquired pneumonia Current Visit: Yes Status: Acute Assessment & Plan: no fever, wbc normal. awaiting covid swab. on rocephin/zithromax Code(s): J18.9 - PNEUMONIA, UNSPECIFIED ORGANISM (2) Atrial fibrillation Current Visit: Yes Status: Acute Code(s): I48.91 - UNSPECIFIED ATRIAL FIBRILLATION (3) CHF (congestive heart failure) Current Visit: Yes Status: Acute Assessment & Plan: add po lasix and monitor volume status Code(s): I50.9 - HEART FAILURE, UNSPECIFIED (4) Generalized weakness Current Visit: Yes Status: Acute Code(s): R53.1 - WEAKNESS
[2019-12-14] MEDS: Klor Con 10 MEQ PO SCH (11:51)
[2019-12-14] MEDS: LASIX 20 MG PO SCH (11:51)
[2019-12-14] MEDS: ROCEPHIN 1 Gm-D5w 50 ml Bag** 1 G/50 ML IVPB IV SCH (21:11)
[2019-12-14] MEDS: Zithromax 500 MG/ 250 ML NaCl Premix 500 MG/250 ML IVPB IV SCH (22:16)
[2019-12-15 05:28] LABS: ANION GAP 9.9 MEQ/L (5-15); BLOOD UREA NITROGEN 24 mg/dL (9-20); CHLORIDE 104 mmol/L (98-107); Calcium 8.8 mg/dL (8.4-10.2); Carbon Dioxide 28 mmol/L (22-30); Creatinine 1 0.95 mg/dL (0.66-1.25); Glucose 100 mg/dL (74-106); NT PRO BNP 1050 pg/mL (0-1800); Potassium 4.4 mmol/L (3.5-5.1); SODIUM 137 mmol/L (137-145)
[2019-12-15 05:30] LABS: Absolute Neutrophil Ct (ANC) 3.78 (1.4-6.9); BASOPHIL % 0.2 % (0.0-0.4); Basophil (Absolute #) 0.02 (0-0.4); Eosinophil % 3.1 % (0.00-5.0); Eosinophil (Absolute #) 0.25 (0-0.5); Hematocrit 36.6 % (42-50); Hemoglobin 12.2 gm/dl (12.5-18.0); Lymphocyte (Absolute #) 3.06 (1.0-4.6); Lymphocytes % 38.2 % (24.0-44.0); Mean Cell Volume 101.9 fl (78-100); Mean Corpuscular Hgb Concent. 33.3 g/dl (32-36); Mean Platelet Volume 9.8 fl (7.5-11.0); Monocyte (Absolute #) 0.91 (0.0-1.3); Monocytes % 11.3 % (0.0-12.0); Neutrophil % 47.2 % (36.0-66.0); Platelet Count 237 K/mm3 (150-450); Red Blood Count 3.59 M/mm3 (4.1-5.6); Red Cell Distribution Width 13.2 % (11.5-14.0)
[2019-12-15] MEDS: ENTRESTO 49 MG-51 MG TABLET PO SCH ×2 (08:23→21:35)
[2019-12-15] MEDS: TYLENOL 325 MG PO PRN ×2 (08:24→13:03)
[2019-12-15] MEDS: Klor Con 10 MEQ PO SCH (08:25)
[2019-12-15] MEDS: Lopressor 25MG Tab PO SCH ×2 (08:25→21:36)
[2019-12-15] MEDS: LASIX 20 MG PO SCH (08:25)
[2019-12-15] MEDS: SYNTHROID 25 MCG PO SCH (08:25)
[2019-12-15] MEDS: ELIQUIS 2.5 MG TABLET PO SCH ×2 (08:26→21:35)
--- NOTE | 2019-12-15 10:27 | PCM.NOTE ---
Date and Time: 12/15/19 1021 Subjective Assessment: Patient reports his breathing is good but sometimes has a cough. He states he had a headache when he first came in but this is much better. He is agreeable to going to rehab before going home. His nurse notes he needed a lot assistance today when he was standing. Some left leg pain from his knee to his ankle when he stands. Denies any history of gout. He thinks Dr. Oconnell is his rehab trainer but he is not 100% sure. - Review of Systems Constitutional: Weakness Respiratory: Cough, No Short Of Breath, No Wheezing Cardiac: No Symptoms Abdominal/Gastrointestinal: No Symptoms Genitourinary Symptoms: No Symptoms Musculoskeletal: Other (He reports some pain in his left knee when he stands that is different for him. ) Skin: No Symptoms Objective Exam General Appearance: no apparent distress, alert, other (sitting up in his chair , in NAD, on room air) Neurologic Exam: alert, cooperative Skin Exam: normal color, warm Wound Assessment: Skin/Wound Assessment Wound/Incision Assessment Start: 12/14/19 19: 35 Text: Status: Active Freq: Q6H Protocol: Document 12/15/19 07:00 [facility] (Rec: 12/15/19 07:42 [facility] [id number]) Wound/Incision Assessment Lower Calf Wound Assessment Admission General Appearance Open to air Surrounding Tissue Saltese Comment bilateral lower legs discolored dry rough left lower leg noted to be warm to touch. Legs appear to have cellulitis. Barrier cream applied. No drainage. Respiratory Exam: normal breath sounds, lungs clear, other (+ frequent cough), No crackles/rales, No rhonchi, No wheezing Cardiovascular Exam: irregular, other (normal rate, irregularly irregular) Gastrointestinal/Abdomen Exam: soft, normal bowel sounds, No tenderness, No distention, No mass Extremity Exam: other (+2 edema to knees bilat) OBJECTIVE DATA Vital Signs: Vital Signs - 24 hr Temp Pulse Resp BP Pulse Ox 12/15/19 08:42 18 12/15/19 08:00 97.8 F 87 18 128/63 93 L 12/15/19 07:46 18 12/15/19 07:00 18 12/15/19 06:39 95 12/15/19 06:00 18 12/15/19 05:00 18 12/15/19 04:00 18 12/15/19 03:14 98.1 F 64 18 121/70 92 L 12/15/19 03:00 18 12/15/19 00:46 21 12/14/19 23:52 21 12/14/19 23:16 98.8 F 77 21 131/67 94 L 12/14/19 23:00 21 12/14/19 20:00 94 L 12/14/19 19:32 98.4 F 89 21 120/68 94 L 12/14/19 19:00 20 12/14/19 17:58 99 H 20 98 12/14/19 16:49 18 12/14/19 16:00 15 12/14/19 15:41 98.4 F 83 15 137/77 93 L 12/14/19 15:00 15 12/14/19 13:36 13 12/14/19 13:28 88 13 94 L 12/14/19 12:53 24 12/14/19 12:00 98.1 F 87 18 120/66 96 12/14/19 11:00 20 Pain Assessment - Last Documented Pain Intensity 3 Pain Scale Used 0-10 Pain Scale Intake and Output: Intake & Output 12/13/19 12/14/19 12/15/19 12/16/19 06:59 06:59 06:59 06:59 Intake Total 200 830 897 Output Total 311 287 2423 Balance -300 430 -178 Weight 102.6 kg 102.6 kg Lab Results: Lab Results-Last 24 Hours 12/12/19 12/15/19 12/15/19 Range/Units 19:10 04:55 04:55 WBC 8.0 (4.0-10.5) K/mm3 RBC 3.59 L (4.1-5.6) M/mm3 Hgb 12.2 L (12.5-18.0) gm/dl Hct 36.6 L (42-50) % MCV 101.9 H (78-100) fl MCH 34.0 H (26-32) pg MCHC 33.3 (32-36) g/dl RDW 13.2 (11.5-14.0) % Plt Count 237 (150-450) K/mm3 MPV 9.8 (7.5-11.0) fl Gran % 47.2 (36.0-66.0) % Eos # (Auto) 0.25 (0-0.5) Absolute Lymphs (auto) 3.06 (1.0-4.6) Absolute Monos (auto) 0.91 (0.0-1.3) Lymphocytes % 38.2 (24.0-44.0) % Monocytes % 11.3 (0.0-12.0) % Eosinophils % 3.1 (0.00-5.0) % Basophils % 0.2 (0.0-0.4) % Absolute Granulocytes 3.78 (1.4-6.9) Basophils # 0.02 (0-0.4) Sodium 137 (137-145) mmol/L Potassium 4.4 (3.5-5.1) mmol/L Chloride 104 (98-107) mmol/L Carbon Dioxide 28 (22-30) mmol/L Anion Gap 9.9 (5-15) MEQ/L BUN 24 H (9-20) mg/dL Creatinine 0.95 (0.66-1.25) mg/dL Estimated GFR > 60.0 ML/MIN Glucose 100 (74-106) mg/dL Calcium 8.8 (8.4-10.2) mg/dL Magnesium 2.0 (1.6-2.3) mg/dL NT-Pro-B Natriuret Pep 1050 (0-1800) pg/mL COVID-19 (TRINO) SEE SEPARATE REPORT Multi-Disciplinary Progress Notes: Multi-Disciplinary Progress Notes 12/14/19 10:52 Case Management Note by Florence Tripp S/W DR. LOUIS - HE IS CONCERNED PATIENT WILL NEED SOME REHAB. HE PLANS TO GET COVID RESULTS BACK THEN IF NEGATIVE HAVE PT ASSESS HIM AND GO FROM THERE. PATIENT RELUCTANT TO GO TO REHAB BUT SEEMS AGREEABLE IF HE NEEDS TO. HE IS AWARE WE ARE WAITING FOR COVID RESULTS AND WILL GO FROM THERE. DAUGHTER MICHAELA ALSO UPDATED ON PLAN AND VERIFIED UNDERSTANDING. Initialized on 12/14/19 10:52 - END OF NOTE Assessment/Plan (1) Community acquired pneumonia Current Visit: Yes Status: Acute Assessment & Plan: Day 3 of ceftriaxone and azithromycin. Continue with antibiotics. Covid 19 test was negative. Code(s): J18.9 - PNEUMONIA, UNSPECIFIED ORGANISM (2) CHF (congestive heart failure) Current Visit: Yes Status: Acute Assessment & Plan: Will check with Dr. Oconnell to see if patient had a recent Echo. Continue lasix and entresto. Code(s): I50.9 - HEART FAILURE, UNSPECIFIED (3) Atrial fibrillation Current Visit: Yes Status: Acute Assessment & Plan: Patient is on eliquis for anticoagulation and metoprolol for rate control. Code(s): I48.91 - UNSPECIFIED ATRIAL FIBRILLATION (4) Generalized weakness Current Visit: Yes Status: Acute Assessment & Plan: PT consult today to evaluate patient as he most likely will need rehab before returning home. Code(s): R53.1 - WEAKNESS
[2019-12-15] MEDS ORDERED: Robitussin 100 MG/5 ML PO PRN (10:29)
[2019-12-15] MEDS: ROCEPHIN 1 Gm-D5w 50 ml Bag** 1 G/50 ML IVPB IV SCH (21:36)
[2019-12-15] MEDS: Zithromax 500 MG/ 250 ML NaCl Premix 500 MG/250 ML IVPB IV SCH (22:47)
[2019-12-16 07:41] VITALS: BP 111/78; PULSE 78; O2SAT 98
--- NOTE | 2019-12-16 08:48 | PCM.NOTE ---
Date and Time: 12/16/19 0845 Subjective Assessment: Patient denies any concerns. He says he got up to walk twice yesterday and the second time went better than the first. I was unable to find a PT note in his computer chart. He states he has to eat slow because he does not have teeth. He states his cough is better. No other concerns. He reports his legs are "asleep" still this AM but don't seem to be hurting as much. - Review of Systems Constitutional: Weakness Respiratory: No Symptoms Cardiac: No Symptoms Abdominal/Gastrointestinal: No Symptoms Genitourinary Symptoms: No Symptoms Musculoskeletal: No Symptoms Skin: No Symptoms Objective Exam Wound Assessment: Skin/Wound Assessment Wound/Incision Assessment Start: 12/14/19 19: 35 Text: Status: Active Freq: Q6H Protocol: Document 12/16/19 07:00 BERNARDO (Rec: 12/16/19 07:06 BERNADRO [id number]) Wound/Incision Assessment Lower Calf Wound Assessment Shift Assessment General Appearance Clean/Dry Surrounding Tissue [place] Comment coral lower ext w compression wraps Wound Photo Comment: No wound noted. OBJECTIVE DATA Vital Signs: Vital Signs - 24 hr Temp Pulse Resp BP Pulse Ox 12/16/19 07:54 98 12/16/19 07:40 97.9 F 78 18 111/78 98 12/16/19 03:24 98.1 F 73 18 131/56 96 12/15/19 23:36 77 17 119/64 96 12/15/19 19:52 95 12/15/19 19:08 98.6 F 82 22 113/55 96 12/15/19 16:00 90 16 130/66 99 12/15/19 14:00 16 12/15/19 13:00 16 12/15/19 11:21 98.2 F 90 16 125/68 98 12/15/19 11:00 16 12/15/19 10:00 18 Pain Assessment - Last Documented Pain Intensity 9 Pain Scale Used 0-10 Pain Scale,Grace-Barry Faces Intake and Output: Intake & Output 12/14/19 12/15/19 12/16/19 12/17/19 06:59 06:59 06:59 06:59 Intake Total 445 631 0726 Output Total 400 1075 450 Balance 430 -178 923 Weight 102.6 kg Lab Results: Lab Results-Last 24 Hours 12/15/19 Range/Units 05:00 Uric Acid 4.7 (3.5-7.2) mg/dL Multi-Disciplinary Progress Notes: Multi-Disciplinary Progress Notes 12/15/19 12:06 Case Management Note by Florence Tripp CALLED AND UPDATED MICHAELA THIS AM WITH DC PLAN Initialized on 12/15/19 12:06 - END OF NOTE 12/15/19 11:55 Case Management Note by Florence Tripp S/W PATIENT- HE HAD MENTIONED GOING TO [facility] FOR REHAB. HE WAS NOTIFIED THAT [facility] IS NOT TAKING ANY NEW PATIENT'S AT THIS TIME. PATIENT WOULD LIKE REFERRAL SENT TO [facility] SINCE IT IS HERE IN [place]. Daxa FOSTER COMPLETED [facility] [facility] PAPERWORK - NO LEVEL II REQUIRED. SHE ALSO FAXED REFERRAL PACKET TO [facility]. Initialized on 12/15/19 11:55 - END OF NOTE Assessment/Plan (1) Community acquired pneumonia Current Visit: Yes Status: Acute Assessment & Plan: Continue IV antibiotics. Code(s): J18.9 - PNEUMONIA, UNSPECIFIED ORGANISM (2) CHF (congestive heart failure) Current Visit: Yes Status: Acute Assessment & Plan: Stable, continue current medication; requested last Echo from Dr. Oconnell's office. Code(s): I50.9 - HEART FAILURE, UNSPECIFIED (3) Atrial fibrillation Current Visit: Yes Status: Acute Assessment & Plan: Currently rate controlled with metoprolol and on anticoagulation. Also taking Entreso. Stable. Continue current medications. Code(s): I48.91 - UNSPECIFIED ATRIAL FIBRILLATION (4) Generalized weakness Current Visit: Yes Status: Acute Assessment & Plan: PT to evaluate patient. He will need rehabilitation before discharge home. Code(s): R53.1 - WEAKNESS (5) Left leg pain Current Visit: Yes Status: Acute Assessment & Plan: Patient reports improved today. Uric acid level was normal. Most likely due to osteoarthritis. Code(s): M79.605 - PAIN IN LEFT LEG
[2019-12-16] MEDS: LASIX 20 MG PO SCH (09:10)
[2019-12-16] MEDS: ELIQUIS 2.5 MG TABLET PO SCH (09:10)
[2019-12-16] MEDS: Klor Con 10 MEQ PO SCH (09:10)
[2019-12-16] MEDS: ENTRESTO 49 MG-51 MG TABLET PO SCH (09:10)
[2019-12-16] MEDS: SYNTHROID 25 MCG PO SCH (09:10)
[2019-12-16] MEDS: Lopressor 25MG Tab PO SCH (09:11)
--- NOTE | 2019-12-16 10:54 | PCM.DCORD ---
- Discharge Discharge Date: 12/16/19 Disposition: DC TO [facility] Condition: Fair Prescriptions: New Potassium Chloride 10 Meq Tab* [Klor Con 10 MEQ] 10 meq PO DAILY tab Furosemide 20 mg [Lasix 20 mg] 20 mg PO DAILY tablet Cefdinir [Omnicef] 300 mg PO BID #8 capsule Guaifenesin 100 mg/5 ml [Robitussin 100 MG/5 ML] 10 ml PO Q4H PRN PRN bottle PRN Reason: Cough Acetaminophen 325 mg [Tylenol 325 mg] 650 mg PO Q6H PRN PRN tablet PRN Reason: Pain And/Or Fever Azithromycin 250 mg [Zithromax 250 MG TABLET] 250 mg PO DAILY #2 tablet Continue Sacubitril/Valsartan [Entresto 24 mg-26 mg Tablet] 1 tab PO BID Metoprolol Tartrate 25 mg [Lopressor 25MG Tab] 25 mg PO BID Apixaban [Eliquis] 2.5 mg PO BID Levothyroxine Sodium 25 Mcg [Synthroid 25 Mcg] 25 mcg PO DAILY Additional Instructions: [facility] Orders: -Pt/Ot eval and treat -Regular diet -see attached medication list for medication orders - Dr. Powers to follow at [facility] (patient's primary care doctor is Dr. Janet Mathias.)
--- NOTE | 2019-12-21 07:52 | DS ---
DISCHARGE DIAGNOSES: 1) COMMUNITY ACQUIRED PNEUMONIA. 2) CONGESTIVE HEART FAILURE. 3) ATRIAL FIBRILLATION. 4) GENERALIZED WEAKNESS. 5) LEFT LEG PAIN. DISCHARGE PHYSICAL EXAMINATION: VITALS: Temperature current 97.9F, temperature max 98.6F, heart rate 78, respiratory rate 18, blood pressure 111/78. GENERAL: The patient was a pleasant talkative man sitting up in no acute distress. CVS: He had an irregularly-irregular rhythm. No murmurs, gallops or rubs. CHEST: Clear to auscultation bilaterally. No crackles or wheezes. ABDOMEN: Soft, nontender, nondistended with normal bowel sounds. EXTREMITIES: No clubbing, cyanosis or edema. SKIN: Warm, dry and intact. HOSPITAL COURSE: 1) COMMUNITY ACQUIRED PNEUMONIA: He was given four days of ceftriaxone and azithromycin. His COVID-19 test was negative. He was discharged on Cefdinir 300 mg p.o. b.i.d. for four more days and azithromycin 250 mg p.o. daily for two more days. 2) CONGESTIVE HEART FAILURE: I requested an echo from Dr. Oconnell's office but did not see a result of that before he was discharged. He was continued on his current medications and stable. 3) ATRIAL FIBRILLATION: He was rate controlled with metoprolol and anticoagulated. He was also taking Entresto and this was stable as well. 4) GENERALIZED WEAKNESS: He was going to rehabilitation for further management for generalized weakness and gait instability. 5) LEFT LEG PAIN: His uric acid level was normal. Most likely his left leg pain is due to osteoarthritis. DISCHARGE MEDICATIONS: Please see the discharge order. DISPOSITION: The patient was discharged to [facility] in fair condition.
== END 2019-12-16 13:08 | DRG 195 ==
LOC: ED 17:01 → MED SURG 22:51
PROVIDERS: ADMIT Family Medicine; ATTEND Family Medicine
DX: J18.9 Pneumonia, unspecified organism (principal); I48.91 Unspecified atrial fibrillation; I50.9 Heart failure, unspecified; M79.10 Myalgia, unspecified site; M79.605 Pain in left leg; M54.2 Cervicalgia; R53.1 Weakness; R51 Headache; Z79.01 Long term (current) use of anticoagulants; Z79.899 Other long term (current) drug therapy
CPT/HCPCS: 36000; 36415; 71045; 80048; 80053; 81001; 82728; 83605; 83615; 83735; 83880; 84484; 84550; 85025; 85027; 85610; 86308; 87040; 87631; 87651; 93005; 93041; 94760; 94762; 96365; 96368; 97162; 97530; 99284; U0001; A6457; J0456; J0696; U0002; A9270-GY